=== PATIENT | female | born 1965 | race Caucasian/White ===

== ENCOUNTER 2016-03-28 17:04 | Emergency (ER) | payer BC ==
[2014-07-02 06:52] VITALS: BMI 29.1
[~2016-03-28 17:04] MED LIST: BUSPAR 15 MG TA15 MG PO; CYTOMEL25 MCG PO; DILANTIN100 MG PO; HYDROCODONE-APA1 TAB PO; SYNTHROID175 MCG PO; TRIAMTERENE-HCT1 TA1 PO
[2016-03-28 19:11] LABS: BASOPHILS 0.2 % (0.0-2.0); EOSINOPHILS 1.9 % (0-7); HEMATOCRIT 40.8 % (36.0-48.0); HEMOGLOBIN 13.6 g/dL (12-16); IMMATURE GRANULOCYTES 0.2 % (0-5); LYMPHOCYTES 14.4 % (15-50); MCH 31.1 pg (26.0-34.0); MCHC 33.3 g/dL (31.0-37.0); MCV 93.2 fL (80.0-100.0); MEAN PLATELET VOLUME 10.1 fL (7.4-10.4); MONOCYTES 6.1 % (2-11); NEUTROPHILS 77.2 % (40-80); PLATELET COUNT 265 10x3/uL (130-400); RBC 4.38 10x6/uL (4.00-5.40); RDW 13.1 % (11.5-14.5)
[2016-03-28 19:32] LABS: ALBUMIN 4.2 g/dL (3.4-5.0); ANION GAP 15.5 mmol/L (8-16); BILIRUBIN - TOTAL 0.7 mg/dL (0.2-1.3); CALCIUM 9.3 mg/dL (8.5-10.1); MAGNESIUM - SERUM 1.9 mg/dL (1.8-2.4); POTASSIUM - SERUM 3.5 mmol/L (3.5-5.1); PROTEIN - SERUM 7.6 g/dL (6.4-8.2)
== END 2016-03-28 20:25 | disposition home or self-care (01) ==
LOC: D.ER 17:04
PROVIDERS: Nurse Practitioner Acute Care
DX: G40.909 Epilepsy, unspecified, not intractable, without status epilepticus (principal); E03.9 Hypothyroidism, unspecified

== ENCOUNTER → 2016-07-04 17:36 | Outpatient (CLI) | payer BC ==
[2014-07-02 06:52] VITALS: BMI 29.1
== END | disposition home or self-care (01) ==
LOC: D.LAB 17:36
DX: G40.209 Localization-related (focal) (partial) symptomatic epilepsy and epileptic syndromes with complex partial seizures, not intractable, without status epilepticus (principal)

== ENCOUNTER → 2016-07-20 09:59 | Outpatient (CLI) | payer BC ==
[2014-07-02 06:52] VITALS: BMI 29.1
== END | disposition home or self-care (01) ==
LOC: D.US 09:59
DX: E04.9 Nontoxic goiter, unspecified (principal)

== ENCOUNTER 2016-12-14 07:14 | Day surgery (SDC) | payer BC ==
[2016-12-14 08:34] LABS: HEMATOCRIT 37.2 % (36.0-48.0); HEMOGLOBIN 12.5 g/dL (12-16); MCH 30.5 pg (26.0-34.0); MCHC 33.6 g/dL (31.0-37.0); MCV 90.7 fL (80.0-100.0); MEAN PLATELET VOLUME 9.9 fL (7.4-10.4); RBC 4.1 10x6/uL (4.00-5.40); WBC 6.4 10x3/uL (4.8-10.8)
[2016-12-14] MEDS ORDERED: ZONEGRAN100 MG PO (08:38)
[2016-12-14] MEDS ORDERED: VITAMIN D31000 UNI2 PO (08:39)
[2016-12-14] MEDS ORDERED: PEPCID40 MG PO (08:39)
[2016-12-14] MEDS ORDERED: BIOTIN5 MG PO (08:39)
[2016-12-14] MEDS ORDERED: OMEPRAZOLE40 MG PO (08:40)
[2016-12-14 08:50] VITALS: BP 117/64; BMI 28.1
--- NOTE | 2016-12-14 10:02 | NUR ---
1001 DILATED ESOPHAGUS WITH 60 SRI LANKAN X 1 MINUTE.
--- NOTE | 2016-12-14 10:38 | NUR ---
1030-RECD FROM GI LAB. ALERT. RESP WITH EASE. FULL LIQUIDS SERVED.
--- NOTE | 2016-12-14 11:18 | NUR ---
1100-DR JESSEE CHRISTINA. IV D/C. UP TO BATHROOM, VOIDS. 1115-DISCHARGE INSTRUCTIONS REVIEWED. 1119-D/C HOME VIA WHEELCHAIR WITH SPOUSE.
--- NOTE | 2017-01-22 16:03 | OP ---
PATIENT NAME: ABIGAIL APPIAH MEDICAL RECORD: [id number] :69 LOCATION:[facility] ADMISSION DATE: SURGEON: WENDY HOOKS MD DATE OF OPERATION: 12/14/2016 PROCEDURE: EGD with balloon dilatation, EGD with biopsy. SCOPE: Olympus video gastroscope and a CRE Microvasive balloon from 45-60 [place]. INDICATION FOR THE PROCEDURE: Esophageal spasm, dyskinesia, dysphagia, and gastroesophageal reflux disease. FINDINGS: Informed consent was given. The patient was made comfortable with 200 mg of propofol, O2 4 liters, and after reaching an adequate level of sedation, the patient was placed on her left side. The endoscope was then advanced under direct visualization through the posterior pharyngeal area and advanced to the distal esophagus. At this area, a stenotic Schatzki's ring was appreciated and a CRE Microvasive balloon was placed in this area, inflated to 60-[place]an, held in place for 1 minute without complication. The balloon was then deflated and removed. We then advanced the scope into the cardia, fundus and body of the stomach and on retroflexion, fairly normal appearing tissue was appreciated. We went to the antral area where multiple gastric ulcers were noted, nonhemorrhagic, no visible vessels, not actively bleeding. A biopsy was taken for Helicobacter pylori and histopathology. The duodenal bulb to the second portion had mild inflammation and biopsies were taken within the second portion of the duodenum. The scope was then withdrawn. IMPRESSION: 1. Distal esophageal stricture dilated to 60-Rwandan without complication. 2. Mild reflux esophagitis. Biopsies obtained at the gastroesophageal junction, lower one-third of the esophagus, and mid esophageal area. The mid esophageal biopsy was taken looking for the presence of esophageal eosinophilia. 3. Antral ulcers, multiple without visible vessels, not actively bleeding. Biopsy taken for Helicobacter pylori. 4. Mild duodenitis, biopsy taken in the second portion of the duodenum. PLAN: 1. No anti-inflammatory drugs or aspirin please. 2. Gastroesophageal reflux disease precautions. No chocolate, tomato, citrus, caffeine, fatty foods, peppermint. The patient should not eat late at night and sit up for hours after meals and if refluxing at nighttime, which I suspect she is, sleep with the head of the bed elevated. 3. If symptoms do not resolve, we will order a barium esophagram to evaluate motility. and look for active refluxing. 4. Continue omeprazole at 40 mg p.o. q.a.m. and famotidine 40 mg p.o. q.h.s. 5. We will provide a prescription for Levsin 0.125 mg sublingual q.4-6 hours p.r.n. spasm. 6. Return to [facility] for another EGD to document healing of the gastric ulcers and to evaluate for additional problems with refluxing. TRANSINT:[id number] Voice Confirmation ID: [id number] DOCUMENT ID: [id number] OPERATIVE REPORT [id number] ABIGAIL APPIAH BRENDA MD at 1603 CC: NATALIE GANT DO and DONNA CANADA MD [phone] DICTATION DATE: 12/14/16 1017 [place] TECHNICIAN: 12/14/16 1121 [facility] 12/14/16 [facility] [address] [place] [address]
== END 2016-12-14 11:19 | disposition home or self-care (01) ==
LOC: D.OPS 07:14
PROVIDERS: Anesthesiology
DX: K22.4 Dyskinesia of esophagus (principal); G24.9 Dystonia, unspecified; R13.10 Dysphagia, unspecified; K21.9 Gastro-esophageal reflux disease without esophagitis; Z01.812 Encounter for preprocedural laboratory examination

== ENCOUNTER → 2016-12-19 06:26 | Outpatient (CLI) | payer BC ==
[2016-12-14 08:50] VITALS: BMI 28.1
[~2016-12-19 06:26] MED LIST changes: +BIOTIN5 MG PO; +OMEPRAZOLE40 MG PO; +PEPCID40 MG PO; +VITAMIN D31000 UNI2 PO; +ZONEGRAN100 MG PO
[2016-12-21 06:15] LABS: ENDOMYSIAL ANTIBODY IGA Negative (Negative)
[2016-12-21 13:15] LABS: ANTIGLIADIN IGA 4 units (0-19); ANTIGLIADIN IGG 2 units (0-19)
== END ==
LOC: D.LAB 06:26
PROVIDERS: Internal Medicine Gastroenterology
DX: D72.820 Lymphocytosis (symptomatic) (principal)

== ENCOUNTER → 2017-12-05 19:41 | Outpatient (CLI) | payer BC | END | disposition home or self-care (01) | LOC: D.MAMMO 13:15 | DX: Z12.31 Encounter for screening mammogram for malignant neoplasm of breast (principal) ==

== ENCOUNTER → 2017-12-19 16:20 | Outpatient (CLI) | payer BC | END | disposition home or self-care (01) | LOC: D.MAMMO 12-13 09:00 → D.US 12-13 10:00 → D.MAMMO 09:00 | DX: R92.8 Other abnormal and inconclusive findings on diagnostic imaging of breast (principal) ==

== ENCOUNTER 2018-06-23 08:00 | Outpatient (CLI) | payer BC | END 2018-06-23 09:00 | disposition home or self-care (01) | LOC: D.MAMMO 08:00 | PROVIDERS: ATTEND Family Medicine | DX: R92.8 Other abnormal and inconclusive findings on diagnostic imaging of breast (principal) ==

== ENCOUNTER 2018-11-28 21:25 | Emergency (ER) | payer BC ==
[~2018-11-28] VITALS: Ht 165.1 cm; Wt 75.9 kg
[2018-11-28 21:28] VITALS: Ht 165.1 cm; Wt 75.9 kg
[2018-11-28] MEDS ORDERED: HYDROCODONE-A1 UDTA2 PO (22:40)
[2018-11-28 22:53] VITALS: BP 125/78
== END 2018-11-28 22:54 | disposition home or self-care (01) ==
LOC: D.ER 21:25
DX: S63.280A Dislocation of proximal interphalangeal joint of right index finger, initial encounter (principal); W19.XXXA Unspecified fall, initial encounter